=== PATIENT | female | born 1995 | race Caucasian/White ===

== ENCOUNTER 2018-10-13 15:54 | Emergency (ER) | payer OTHER ==
[2018-10-13 16:40] VITALS: BP 119/59; PULSE 75; TEMP 98.4; BMI 44.1
--- NOTE | 2018-10-13 17:44 | PDOC ---
History of Present Illness - General Chief Complaint: Chest Pain Stated Complaint: CHEST PAIN Time Seen by Provider: 10/13/18 16:59 History Source: Patient Exam Limitations: Clinical Condition - History of Present Illness Initial Comments: 10/13/18 17:37 Patient with no significant PMhx present with complains of 5 days h/o mid- sternal chest pain which is worse with deep breathing. Patent report she just moved and has been doing lot of heavy lifting. Patient report she went to see PCP about symptoms and told by PCP to come to ED. Patient denies radiation of pain, N/V, numbness or tingling sensation, arm weakness. Denies any other symptoms Timing/Duration: other (5 days) Past History - Past Medical History Allergies/Adverse Reactions: Allergies Allergy/AdvReac Type Severity Reaction Status Date / Time No Known Allergies Allergy Verified 10/13/18 16:39 Home Medications: Ambulatory Orders Ibuprofen 800 mg PO Q8H PRN #20 tablet 10/13/18 - Suicide/Smoking/Psychosocial Hx Smoking History: Never smoked Have you smoked in the past 12 months: No Information on smoking cessation initiated: No Hx Alcohol Use: No Drug/Substance Use Hx: No Review of Systems - Review of Systems Able to Perform ROS?: Yes Is the patient limited Bengali proficient: No Constitutional: No: Chills, Fever, Malaise HEENTM: No: Symptoms Reported, See HPI, Eye Pain, Blurred Vision, Tearing, Recent change in vision, Double Vision, Cataracts, Ear Pain, Ocular Prothesis, Ear Discharge, Nose Pain, Nose Congestion, Tinnitus, Nose Bleeding, Hearing Loss , Throat Pain, Throat Swelling, Mouth Pain, Dental Problems, Difficulty Swallowing, Mouth Swelling, Other Respiratory: No: Symptoms reported, See HPI, Cough, Orthopnea, Shortness of Breath, SOB with Exertion, SOB at Rest, Stridor, Wheezing, Productive cough, Hemoptysis, Other Cardiac (ROS): Yes: Symptoms Reported, See HPI, Chest Pain (mid-sternum). No: Edema, Irregular Heart Rate, Lightheadedness, Palpitations, Syncope, Chest Tightness, Other ABD/GI: No: Nausea, Vomiting Neurological: No: Headache, Dizziness All Other Systems: Reviewed and Negative *Physical Exam - Vital Signs Last Vital Signs Temp Pulse Resp BP Pulse Ox 98.4 F 75 16 119/59 L 100 10/13/18 16:36 10/13/18 16:36 10/13/18 16:36 10/13/18 16:36 10/13/18 16:36 - Physical Exam General Appearance: Yes: Nourished, Appropriately Dressed. No: Apparent Distress ED Treatment Course - LABORATORY CBC & Chemistry Diagram: 10/13/18 17:38 10/13/18 17:38 - RADIOLOGY Radiology Studies Ordered: Category Date Time Status CHEST PA & LAT [RAD] Stat Radiology 10/13/18 17:02 Ordered Medical Decision Making - Medical Decision Making 10/13/18 17:40 atient with no significant PMhx present with complains of 5 days h/o mid- sternal chest pain which is worse with deep breathing. Patent report she just moved and has been doing lot of heavy lifting. Patient report she went to see PCP about symptoms and told by PCP to come to ED. Patient denies radiation of pain, N/V, numbness or tingling sensation, arm weakness. Denies any other symptoms. Clinical exam significant for mild re-produceable mid-sternal tenderness otherwise unremarkable exam. symptoms likely costochondritis and less likely acute MN. CBC,CMP and cardiac profile labs ordered. EKG shows no acute pathology. chest x- ray ordered. treat based imaging and lab result 10/13/18 18:36 CBC, chemistry zaheer cardia profile normal. chest x-rays unremarkable. Patient stable for discharge on ibuprofen for costochondritis with strict follow-up *DC/Admit/Observation/Transfer Diagnosis at time of Disposition: Costochondral chest pain - Discharge Dispostion Disposition: HOME Condition at time of disposition: Stable Decision to Admit order: No - Prescriptions Prescriptions: Ibuprofen 800 mg PO Q8H PRN #20 tablet PRN Reason: pain - Referrals Referrals: Mohit Duran NP [Primary Care Provider] - - Patient Instructions Printed Discharge Instructions: DI for Costochondritis Additional Instructions: Your labs and chest x-rays was normal. Your symptoms is likely from musculoskeletal pain. Take prescribed medication as needed for pain. Come back to ER if worsening chest pain, shortness of breathe, dizziness with nausea and vomiting - Post Discharge Activity Forms/Work/School Notes: Back to Work
[2018-10-13 17:56] LABS: BASO % 1.1 % (0-2.0); EOS % 2.5 % (0-4.5); HEMATOCRIT 39.5 % (32.4-45.2); HEMOGLOBIN 13.1 GM/dL (10.7-15.3); MCH 30.9 pg (25.7-33.7); MCHC 33.1 g/dl (32.0-36.0); MEAN CELL VOLUME 93.4 fl (80-96); MEAN PLT VOLUME 9.3 fl (7.5-11.1); MONO % 5.3 % (3.8-10.2); NEUT % 62.1 % (42.8-82.8); PLATELET COUNT 284 K/MM3 (134-434); RBC 4.24 M/mm3 (3.60-5.2); RDW 14.1 % (11.6-15.6); WHITE BLOOD COUNT 11.5 K/mm3 (4.0-10.0)
[2018-10-13 18:24] LABS: ALBUMIN 3.6 g/dl (3.4-5.0); ALK PHOS 63 U/L (45-117); ANION GAP 7 MMOL/L (8-16); BILIRUBIN,TOTAL 0.2 mg/dL (0.2-1); BLOOD UREA NITROGEN 8 mg/dL (7-18); CALCIUM 8.6 mg/dL (8.5-10.1); CHLORIDE 106 mmol/L (98-107); CO2 25 mmol/L (21-32); CREATININE 0.5 mg/dL (0.55-1.3); GLUCOSE,RANDOM 74 mg/dL (74-106); POTASSIUM 3.8 mmol/L (3.5-5.1); SGOT/AST 12 U/L (15-37); SGPT/ALT 13 U/L (13-61); SODIUM 138 mmol/L (136-145); TOT PROT 6.9 g/dl (6.4-8.2)
[2018-10-13] MEDS ORDERED: IBUPROFEN 400 MG TABLET (FP) PO ONE ×2 (18:36→18:51)
--- NOTE | 2018-10-17 15:36 | EKG ---
Test Reason : Blood Pressure : / mmHG Vent. Rate : 080 BPM Atrial Rate : 080 BPM P-R Int : 184 ms QRS Dur : 080 ms QT Int : 350 ms P-R-T Axes : 029 042 027 degrees QTc Int : 403 ms NORMAL SINUS RHYTHM WITH SINUS ARRHYTHMIA NORMAL ECG NO PREVIOUS ECGS AVAILABLE Confirmed by DELMAR HUANG MD ([id number]) on 10/17/2018 3:35:59 PM Referred By: Confirmed By:DELMAR HUANG MD
== END 2018-10-13 18:54 | disposition home or self-care (01) ==
LOC: JER 15:54
DX: M94.0 Chondrocostal junction syndrome [Tietze] (principal); X50.9XXA Other and unspecified overexertion or strenuous movements or postures, initial encounter; Y93.E6 Activity, residential relocation; Y92.038 Other place in apartment as the place of occurrence of the external cause; Y99.8 Other external cause status
CPT/HCPCS: 36415; 71046-TC-FY; 80053; 82550; 84484; 85025; 93005; 93010; 99283-25